=== PATIENT | female | born 1985 | race Caucasian/White ===

== ENCOUNTER 2022-05-05 17:05 | Emergency (ER) | payer MEDICAID, OTHER ==
[2022-05-05] MEDS ORDERED: SODIUM CHLORIDE 0.9% 1,000 ML IV STA (18:06)
[2022-05-05 18:07] VITALS: RESP 18
--- NOTE | 2022-05-05 18:11 | ED ---
Abdominal Pain HPI - General Source: patient, RN notes reviewed Mode of arrival: ambulatory Limitations: no limitations - History of Present Illness MD Complaint: abdominal pain <Vern Marie - Last Filed: 05/06/22 04:36> <Tony Velasquez - Last Filed: 05/06/22 19:56> - General Chief Complaint: Abdominal Pain Stated Complaint: nausea, vomiting Time Seen by Provider: 05/05/22 18:06 - History of Present Illness Initial Comments: Pleasant 36-year-old female presents with 2 days of abdominal pain, sharp in nature, located in epigastrium. Diminished appetite. Some nausea and vomiting. No hematemesis or coffee-ground emesis. No changes in bowel movement. Patient has been on [facility] for 8 days for benzodiazepine use. Denies any previous abdominal history or abdominal surgeries. No headache, no fever or chills, no changes in vision or hearing, no sore throat or difficulty with speech, no neck pain, no chest pain or shortness of breath, no changes in urination or bowel movements, no numbness or tingling, no e xtremity pain, no skin rashes or lesions. (Vern Marie) - Related Data Previous Rx's Medication Instructions Recorded Bacitracin Zinc Oint 1 applic TOPICAL BID PRN #1 tube 09/10/15 Gabapentin [Neurontin] 800 mg PO TID #21 dose 09/10/15 Ibuprofen [Motrin] 800 mg PO TID #21 dose 09/10/15 Multivitamins, Thera [Multivitamin 1 each PO DAILY@1200 #30 tab 09/10/15 (formulary)] QUEtiapine [SEROquel] 200 mg PO HS #7 tab 09/10/15 Sertraline [Zoloft] 100 mg PO DAILY #7 tab 09/10/15 Sulfamethox-Tmp 800-160Mg [Bactrim 1 each PO Q12HR #6 tab 09/10/15 DS 800-160 mg] bisacodyL [Dulcolax] 5 mg PO DAILY PRN #7 tablet.dr 09/10/15 cloNIDine HCL [Catapres] 0.1 mg PO TID #21 tab 09/10/15 hydrOXYzine pamoate [Vistaril] 25 mg PO BID@0800,1300 #14 cap 11/03/15 hydrOXYzine pamoate [Vistaril] 50 mg PO HS #7 dose 09/10/15 Allergies Allergy/AdvReac Type Severity Reaction Status Date / Time nickel Allergy Rash/Hives Verified 05/05/22 18:07 Review of Systems ROS Other: All systems not noted in ROS Statement are negative. <Vern Marie - Last Filed: 05/06/22 04:36> ROS Other: All systems not noted in ROS Statement are negative. <Tony Velasquez - Last Filed: 05/06/22 19:56> ROS Statement: Those systems with pertinent positive or pertinent negative responses have been documented in the HPI. Past Medical History Past Medical History: Asthma Additional Past Medical History / Comment(s): Depression, hepatitis C, human papillomavirus status post LEEP procedure, heroine abuse, cocaine abuse, chronic tobacco use and dependence. denies asthma. abcess left arm History of Any Multi-Drug Resistant Organisms: None Reported Past Surgical History: No Surgical Hx Reported Additional Past Surgical History / Comment(s): Patient had wisdom teeth removed as well as LEEP procedure for human papillomavirus. Past Anesthesia/Blood Transfusion Reactions: No Reported Reaction Past Psychological History: Anxiety, Depression Past Alcohol Use History: None Reported Past Drug Use History: Cocaine, Heroin, Methamphetamine - Past Family History Mother Family Medical History: Hypertension Father Additional Family Medical History / Comment(s): states, "no significant medical history." <Vern Marie - Last Filed: 05/06/22 04:36> General Exam Limitations: no limitations General appearance: alert, in no apparent distress Head exam: Present: atraumatic, normocephalic, normal inspection Eye exam: Present: normal appearance, PERRL, EOMI. Absent: scleral icterus, conjunctival injection, periorbital swelling ENT exam: Present: normal exam, normal oropharynx, mucous membranes moist, normal external ear exam Neck exam: Present: normal inspection. Absent: tenderness, meningismus, lymphadenopathy Respiratory exam: Present: normal lung sounds bilaterally. Absent: respiratory distress, wheezes, rales, rhonchi, stridor Cardiovascular Exam: Present: regular rate, normal rhythm, normal heart sounds. Absent: systolic murmur, diastolic murmur, rubs, gallop, clicks GI/Abdominal exam: Present: soft, tenderness (Upper abdominal tenderness.), normal bowel sounds. Absent: distended, guarding, rebound, rigid Extremities exam: Present: normal inspection, full ROM, normal capillary refill. Absent: tenderness, pedal edema, joint swelling, calf tenderness Back exam: Present: normal inspection Neurological exam: Present: alert, oriented X3, CN II-XII intact, normal gait Psychiatric exam: Present: normal affect, normal mood Skin exam: Present: warm, dry, intact, normal color. Absent: rash <Venr Marie - Last Filed: 05/06/22 04:36> Course <Vern Marie - Last Filed: 05/06/22 04:36> Vital Signs 05/05/22 05/06/22 17:59 07:47 Temperature 97.5 F L 99.4 F Pulse Rate 68 70 Respiratory 18 18 Rate Blood Pressure 162/112 150/94 O2 Sat by Pulse 97 100 Oximetry - Reevaluation(s) Reevaluation #1: 05/06/22 03:24 Medical record is reviewed Symptoms are improved here in the emergency department Patient is informed of results and questions answered Patient in no distress (Vern Marie) Reevaluation #2: 05/06/22 04:36 (Vern Marie) Medical Decision Making - Lab Data Result diagrams: 05/05/22 22:15 05/05/22 22:15 <Vern Marie - Last Filed: 05/06/22 04:36> - Lab Data Result diagrams: 05/05/22 22:15 05/05/22 22:15 - Radiology Data Radiology results: report reviewed (CT abdomen and pelvis positive for constipation), image reviewed <Tony Velasquez - Last Filed: 05/06/22 19:56> - Medical Decision Making Patient presented from [place] for abdominal pain. Patient had several episodes of vomiting with some epigastric abdominal discomfort. Patient had having a white blood cell count of 20,000. Patient did not consent to computed tomography scan without the test initially. This was finally obtained. CT was ordered. CT was delayed due to a backup. CT currently pending. Patient hemodynamically stable Patient will be endorsed to Dr. Velasquez At 4:30 AM. (Vern Marie) 36 female seen and evaluated, patient has significant constipation. Patient can be discharged (Tony Velasquez) - Lab Data Lab Results 05/05/22 05/05/2222 Range/Units 22:15 22:15 01:27 WBC 20.6 H (3.8-10.6) k/uL RBC 4.75 (3.80-5.40) m/uL Hgb 15.4 (11.4-16.0) gm/dL Hct 43.7 (34.0-46.0) % MCV 92.1 (80.0-100.0) fL MCH 32.5 (25.0-35.0) pg MCHC 35.2 (31.0-37.0) g/dL RDW 12.4 (11.5-15.5) % Plt Count 351 (150-450) k/uL MPV 7.3 Neutrophils % 93 % Lymphocytes % 4 % Monocytes % 2 % Eosinophils % 1 % Basophils % 0 % Neutrophils # 19.1 H (1.3-7.7) k/uL Lymphocytes # 0.9 L (1.0-4.8) k/uL Monocytes # 0.4 (0-1.0) k/uL Eosinophils # 0.2 (0-0.7) k/uL Basophils # 0.0 (0-0.2) k/uL Sodium 135 L (137-145) mmol/L Potassium 3.9 (3.5-5.1) mmol/L Chloride 99 (98-107) mmol/L Carbon Dioxide 26 (22-30) mmol/L Anion Gap 10 mmol/L BUN 13 (7-17) mg/dL Creatinine 0.71 (0.52-1.04) mg/dL Est GFR (CKD-EPI)AfAm >90 (>60 ml/min/1.73 sqM) Est GFR (CKD-EPI)NonAf >90 (>60 ml/min/1.73 sqM) Glucose 132 H (74-99) mg/dL Calcium 9.9 (8.4-10.2) mg/dL Total Bilirubin 0.8 (0.2-1.3) mg/dL AST 28 (14-36) U/L ALT 15 (4-34) U/L Alkaline Phosphatase 94 (38-126) U/L Total Protein 8.5 H (6.3-8.2) g/dL Albumin 5.3 H (3.5-5.0) g/dL Lipase 44 (23-300) U/L Urine Color Light Yellow Urine Appearance Cloudy H (Clear) Urine pH 5.0 (5.0-8.0) Ur Specific [place] 1.020 (1.001-1.035) Urine Protein Negative (Negative) Urine Glucose (UA) Negative (Negative) Urine Ketones 2+ H (Negative) Urine Blood Negative (Negative) Urine Nitrite Negative (Negative) Urine Bilirubin Negative (Negative) Urine Urobilinogen <2.0 (<2.0) mg/dL Ur Leukocyte Esterase Negative (Negative) Urine WBC <1 (0-5) /hpf Ur Squamous Epith Cells <1 (0-4) /hpf Urine HCG, Qual (Not Detectd) 05/06/22 Range/Units 01:27 WBC (3.8-10.6) k/uL RBC (3.80-5.40) m/uL Hgb (11.4-16.0) gm/dL Hct (34.0-46.0) % MCV (80.0-100.0) fL MCH (25.0-35.0) pg MCHC (31.0-37.0) g/dL RDW (11.5-15.5) % Plt Count (150-450) k/uL MPV Neutrophils % % Lymphocytes % % Monocytes % % Eosinophils % % Basophils % % Neutrophils # (1.3-7.7) k/uL Lymphocytes # (1.0-4.8) k/uL Monocytes # (0-1.0) k/uL Eosinophils # (0-0.7) k/uL Basophils # (0-0.2) k/uL Sodium (137-145) mmol/L Potassium (3.5-5.1) mmol/L Chloride (98-107) mmol/L Carbon Dioxide (22-30) mmol/L Anion Gap mmol/L BUN (7-17) mg/dL Creatinine (0.52-1.04) mg/dL Est GFR (CKD-EPI)AfAm (>60 ml/min/1.73 sqM) Est GFR (CKD-EPI)NonAf (>60 ml/min/1.73 sqM) Glucose (74-99) mg/dL Calcium (8.4-10.2) mg/dL Total Bilirubin (0.2-1.3) mg/dL AST (14-36) U/L ALT (4-34) U/L Alkaline Phosphatase (38-126) U/L Total Protein (6.3-8.2) g/dL Albumin (3.5-5.0) g/dL Lipase (23-300) U/L Urine Color Urine Appearance (Clear) Urine pH (5.0-8.0) Ur Specific [place] (1.001-1.035) Urine Protein (Negative) Urine Glucose (UA) (Negative) Urine Ketones (Negative) Urine Blood (Negative) Urine Nitrite (Negative) Urine Bilirubin (Negative) Urine Urobilinogen (<2.0) mg/dL Ur Leukocyte Esterase (Negative) Urine WBC (0-5) /hpf Ur Squamous Epith Cells (0-4) /hpf Urine HCG, Qual Not Detected (Not Detectd) Disposition <Vern Marie - Last Filed: 05/06/22 04:36> Is patient prescribed a controlled substance at d/c from ED?: No <Tony Velasquez - Last Filed: 05/06/22 19:56> Clinical Impression: Epigastric abdominal pain, Elevated blood pressure reading, Anxiety Disposition: HOME SELF-CARE Condition: Good Instructions (If sedation given, give patient instructions): Abdominal Pain (ED) Referrals: None,Stated [Primary Care Provider] - 1-2 days
--- NOTE | 2022-05-05 19:32 | XR ---
EXAMINATION TYPE: XR abdomen acute w cxr DATE OF EXAM: 05/05/2022 COMPARISON: NONE HISTORY: Abdominal pain TECHNIQUE: 4 views FINDINGS: Heart and mediastinum are normal. Lungs are clear. Diaphragm is normal. Bowel gas pattern is normal. No sign of intestinal obstruction or pneumoperitoneum. Fecal pattern is normal. No pathologic calcifications over the kidneys. Bony structures are intact. IMPRESSION: Normal chest. Nonacute abdomen.
[2022-05-05 22:35] LABS: Basophils % (A) 0 %; Eosinophils # (A) 0.2 k/uL (0-0.7); Eosinophils % (A) 1 %; HCT 43.7 % (34.0-46.0); HGB 15.4 gm/dL (11.4-16.0); Lymphocytes # (A) 0.9 k/uL (1.0-4.8); Lymphocytes % (A) 4 %; MCH 32.5 pg (25.0-35.0); MCHC 35.2 g/dL (31.0-37.0); MCV 92.1 fL (80.0-100.0); Mean Platelet Volume 7.3; Monocytes # (A) 0.4 k/uL (0-1.0); Monocytes % (A) 2 %; Neutrophils # (A) 19.1 k/uL (1.3-7.7); Neutrophils % (A) 93 %; Platelet Count 351 k/uL (150-450); RBC 4.75 m/uL (3.80-5.40); RDW 12.4 % (11.5-15.5); WBC 20.6 k/uL (3.8-10.6)
[2022-05-05] MEDS ORDERED: ACETAMINOPHEN IV (For NPO) 1,000 MG in EMPTY BAG 1 BAG IVPB STA (22:43)
[2022-05-05] MEDS ORDERED: ONDANSETRON 4 MG/2 ML VIAL IVP STA (22:45)
[2022-05-05 22:48] LABS: ALT 15 U/L (4-34); AST 28 U/L (14-36); African American GFR (CKD) >90 (>60 ml/min/1.73 sqM); Albumin 5.3 g/dL (3.5-5.0); Alkaline Phosphatase 94 U/L (38-126); Anion Gap 10 mmol/L; Blood Urea Nitrogen 13 mg/dL (7-17); Calcium 9.9 mg/dL (8.4-10.2); Carbon Dioxide 26 mmol/L (22-30); Chloride 99 mmol/L (98-107); Glucose 132 mg/dL (74-99); Lipase 44 U/L (23-300); Non-African American GFR(CKD) >90 (>60 ml/min/1.73 sqM); Potassium 3.9 mmol/L (3.5-5.1); Sodium 135 mmol/L (137-145); Total Bilirubin 0.8 mg/dL (0.2-1.3); Total Protein 8.5 g/dL (6.3-8.2)
[2022-05-05] MEDS ORDERED: METOCLOPRAMIDE 5 MG/ML 2 ML VIAL IVP STA (23:27)
[2022-05-05] MEDS ORDERED: diphenhydrAMINE 50 MG/ML 1 ML VIAL IVP STA (23:27)
[2022-05-05] MEDS ORDERED: LORazepam 1 MG/0.5 ML VIAL IV STA (23:34)
[2022-05-05] MEDS ORDERED: PROCHLORPERAZINE INJ 10 MG/2 ML VIAL IVP STA (23:34)
[2022-05-06] MEDS ORDERED: SODIUM CHLORIDE 0.9% 1,000 ML IV ONE (00:40)
[2022-05-06 01:56] LABS: Appearance,Urine Cloudy (Clear); Bilirubin,Urine Negative (Negative); Blood,Urine Negative (Negative); Color,Urine Light Yellow; Glucose,Urine (UA) Negative (Negative); Ketones,Urine 2+ (Negative); Leukocyte Esterase,Urine Negative (Negative); Nitrite,Urine Negative (Negative); Protein,Urine Negative (Negative); Squamous Epithelial Cell,Urine <1 /hpf (0-4); Urobilinogen,Urine <2.0 mg/dL (<2.0); WBC,Urine <1 /hpf (0-5)
[2022-05-06] MEDS ORDERED: hydrOXYzine HCL 50 MG/ML 1 ML VIAL IM STA (04:35)
[2022-05-06] MEDS ORDERED: PROCHLORPERAZINE INJ 10 MG/2 ML VIAL IVP STA (06:22)
--- NOTE | 2022-05-06 06:43 | CT ---
EXAM: CT Abdomen and Pelvis With Intravenous Contrast CLINICAL HISTORY: Abdominal pain/generalized TECHNIQUE: Axial computed tomography images of the abdomen and pelvis with intravenous contrast. CTDI is 15.9 mGy and DLP is 703.4 mGy-cm. This CT exam was performed using one or more of the following dose reduction techniques: automated exposure control, adjustment of the mA and/or kV according to patient size, and/or use of iterative reconstruction technique. COMPARISON: No relevant prior studies available. FINDINGS: Lung bases: Unremarkable. No mass. No consolidation. ABDOMEN: Liver: Unremarkable. No mass. Gallbladder and bile ducts: Unremarkable. No calcified stones. No ductal dilation. Pancreas: Unremarkable. No mass. No ductal dilation. Spleen: Unremarkable. No splenomegaly. Adrenals: Unremarkable. No mass. Kidneys and ureters: Cortical scarring involving the mid/lower pole of the right kidney. No hydronephrosis. Stomach and bowel: Increased stool burden is seen to the colon suggesting constipation. No obstruction. No mucosal thickening. PELVIS: Appendix: No findings to suggest acute appendicitis. Bladder: Unremarkable. No mass. Reproductive: A 1.5 cm left ovarian dominant follicle is noted. ABDOMEN and PELVIS: Intraperitoneal space: Unremarkable. No free air. No significant fluid collection. Bones/joints: Chronic bilateral L4 pars defects with grade 1 anterolisthesis of L4 on L5 along with severe intervertebral disc space narrowing at this level. T10-11 severe intervertebral disc space narrowing also noted. No acute fracture. No dislocation. Soft tissues: Unremarkable. Vasculature: Unremarkable. No abdominal aortic aneurysm. Lymph nodes: Unremarkable. No enlarged lymph nodes. Other findings: Correlate clinically. IMPRESSION: 1. Increased stool burden is seen to the colon suggesting constipation. 2. Chronic bilateral L4 pars defects with grade 1 anterolisthesis of L4 on L5 along with severe intervertebral disc space narrowing at this level. T10-11 severe intervertebral disc space narrowing also noted. MRI recommended for further evaluation, if clinically indicated. 3. A 1.5 cm left ovarian dominant follicle is noted. Pelvic ultrasound recommended for further evaluation.
[2022-05-06] MEDS ORDERED: GLYCERIN ADULT SUPPOSITORY 1 EACH RECTAL STA (06:54)
[2022-05-06] MEDS ORDERED: SENNOSIDES-DOCUSATE SODIUM 1 EACH TAB PO STA (06:54)
[2022-05-06 07:50] VITALS: BP 150/94; PULSE 70; TEMP 99.4
== END 2022-05-06 08:17 | disposition home or self-care (01) ==
LOC: EC 17:05
DX: R10.13 Epigastric pain (principal); F41.9 Anxiety disorder, unspecified; J45.909 Unspecified asthma, uncomplicated; I10 Essential (primary) hypertension; Z91.048 Other nonmedicinal substance allergy status
CPT/HCPCS: 99284; 96374; 96361; 96375; 96372; 96376; 36415; 80053; 83690; 85025; 81001; 81025; 74022; 74177; J2060; J1200; J0780 ×2; J2765; J3360; J2405; J3410; J0131; Q9967; 96365; 96368